=== PATIENT | female | born 1955 | race Caucasian/White ===

== ENCOUNTER 2018-11-05 09:59 | Emergency (ER) | payer SELFPAY ==
[~2018-11-05] VITALS: Ht 172.7 cm; Wt 83.0 kg
--- NOTE | 2018-11-05 10:37 | NUR ---
PT C/O INCREASING ABDOMINAL PRESSURE OVER LAST 2 MONTHS WITH VAGINAL BULGE THAT BEGAN YESTERDAY. PT LAST SEEN [facility] [facility] ABOUT 3 YEARS AGO. PT DENIES ANY VAGINAL DC BUT IS C/O FOUL ODOR. PT DENIES DYSURIA.
[2018-11-05] MEDS ORDERED: MORPHINE SULFATE 4 MG/ML, 1ML ONE ×2 (10:48→11:43)
[2018-11-05] MEDS ORDERED: ONDANSETRON 2MG/ML, 2ML ONE (10:48)
[2018-11-05 10:56] LABS: BASOPHILS # (AUTO) 0.05 x10^3/uL (0-0.1); BASOPHILS % (AUTO) 1 % (0-1); EOSINOPHILS # (AUTO) 0.17 x10^3/uL (0-0.4); EOSINOPHILS % (AUTO) 3 % (1-7); LYMPHOCYTES # (AUTO) 1.59 x10^3/uL (1-3.4); LYMPHOCYTES % (AUTO) 30 % (22-44); MD NO; MEAN CORPUSCULAR HEMOGLOBIN 31.7 pg (27.0-34.8); MEAN CORPUSCULAR HGB CONC 33.8 g/dL (32.4-35.8); MEAN CORPUSCULAR VOLUME 93.7 fL (80-100); MONOCYTES # (AUTO) 0.34 x10^3/uL (0.2-0.8); MONOCYTES % (AUTO) 6 % (2-9); NEUTROPHILS # (AUTO) 3.12 x10^3/uL (1.8-6.8); NEUTROPHILS % (AUTO) 59 % (42-75); PLATELET COUNT 346 x10^3/uL (130-400); RED BLOOD COUNT 4.51 x10^6/uL (3.82-5.3); RED CELL DISTRIBUTION WIDTH 13.1 % (9.6-15.2)
[2018-11-05] MEDS ORDERED: ONDANSETRON 2MG/ML, 2ML IVPush ONE (11:00)
[2018-11-05 11:08] LABS: ALBUMIN 3.8 g/dL (3.4-5.0); ANION GAP 9 mmol/L (5-15); CHLORIDE 110 mmol/L (98-107); CREATININE 0.85 mg/dL (0.55-1.02)
[2018-11-05] MEDS: MORPHINE SULFATE 4 MG/ML, 1ML IVPush PRN ×2 (11:10→11:46)
[2018-11-05 11:14] LABS: MICROSCOPIC AUTO
[2018-11-05 11:16] LABS: CULTURE INDICATED? NO
[2018-11-05] MEDS ORDERED: SODIUM CHLORIDE FLUSH 10ML SYR IVF ONE (12:00)
[2018-11-05 12:13] LABS: CLUE CELLS NONE SEEN (NONE SEEN)
[2018-11-05 12:14] LABS: WET PREP WBCS NONE SEEN (FEW)
--- NOTE | 2018-11-05 12:25 | NUR ---
CHART UP FOR MD SMITH. PT AWARE. PAIN 2/10 AFTER SECOND DOSE OF MORPHINE.
--- NOTE | 2018-11-05 13:01 | NUR ---
DESTINY PAC AT BEDSIDE FOR RECHECK.
[2018-11-05 13:23] VITALS: BP 114/68
== END 2018-11-05 13:26 | disposition home or self-care (01) ==
LOC: ED 13:02
DX: N81.10 Cystocele, unspecified (principal)
CPT/HCPCS: 36415; 80048; 81001; 82040; 85025; 87210; 87808; 96374; 96375; 96376; 99283; J2405